=== PATIENT | male | born 1960 | race Caucasian/White ===

== ENCOUNTER 2021-10-10 19:15 | Inpatient (IN) | payer MEDICARE, OTHER ==
[~2021-10-10] VITALS: Ht 177.8 cm; Wt 116.9 kg
--- NOTE | 2021-10-10 11:15 | NUR ---
PT ARRIVED TO CCU ROOM 130 ADMITTED FOR SEPSIS, HAS RECENT OSWALD ON RIGHT FINGERS. IS ALERT AND ORIENTED, ABLE TO TRANSFER HIMSELF OVER TO THE BED. DENIES PAIN AT THIS TIME. IV VANCO INFUSING, WILL START IV ROCEPHIN NEXT ALONG WITH IVF. PLAN OF CARE DISCUSSED WITH THE PATIENT, HE AGREES, HAS NO CONCERNS OR QUESTONS AT THIS TIME.
[2021-10-10] MEDS ORDERED: COREG25 MG PO (20:26)
[2021-10-10] MEDS ORDERED: LIPITOR40 MG PO (20:26)
[2021-10-10] MEDS ORDERED: BUSPIRONE HCL15 MG PO (20:27)
[2021-10-10] MEDS ORDERED: AMITRIPTYLINE150 MG PO (20:27)
[2021-10-10] MEDS ORDERED: ZOLOFT50 MG PO (20:27)
[2021-10-10] MEDS ORDERED: METFORMIN HCL1000 MG PO (20:28)
[2021-10-10] MEDS ORDERED: KLOR-CON M2020 MEQ PO (20:28)
[2021-10-10] MEDS ORDERED: TORSEMIDE20 MG PO (20:29)
[2021-10-10] MEDS ORDERED: OXYCODONE HCL10 MG PO (20:29)
[2021-10-10] MEDS ORDERED: SINGULAIR10 MG PO (20:30)
[2021-10-10] MEDS ORDERED: VENTOLIN HFA18 GM INH ×2 (20:30)
[2021-10-10] MEDS ORDERED: HUMALOG100 UNITS/ SUB-Q (20:32)
[2021-10-10] MEDS ORDERED: LANTUS100 UNITS/ SUB-Q (20:32)
[2021-10-10] MEDS ORDERED: LYRICA300 MG PO (20:33)
[2021-10-10] MEDS ORDERED: OZEMPIC1 MG/0.71 SUB-Q (20:34)
--- OUTSIDE RECORDS SUMMARY | 2021-10-10 22:54 | XMS ---
PreManage Notification: GELA HERNADEZ Security Facility Coordinator Events No recent Security Events currently on file CRITERIA MET - PDMP CARE PROVIDERS Malena Clinton Market Development Manager/Cabin Cleaning Supervisor 02/03/2021-Current PHONE: [phone] [facility], Clinic/Center: [facility] PHONE: Unknown SHAY HAQ Physician Jewelry Dipper: [facility] PHONE: [phone] Vanna has no Care Guidelines for this patient. E.D. VISIT COUNT (12 MO.) 17 [facility] H. 1 [facility] TOTAL 18 NOTE: Visits indicate total known visits. ED/UCC VISIT TRACKING (12 MO.) 10/10/2021 19:16 [facility] [place] TYPE: Emergency COMPLAINT: - BURN 07/24/2021 05:41 [facility]. TYPE: Emergency COMPLAINT: - non traumatic left leg pain DIAGNOSES: - Leg Pain - non traumatic left leg pain - Radiculopathy, lumbar region 07/18/2021 19:43 [facility] TYPE: Emergency COMPLAINT: - Fall Hip Pain Unable to stand DIAGNOSES: - Hip Pain - Hip Pain Unable to stand - Lumbago with sciatica, left side - Fall Hip Pain Unable to stand 07/02/2021 13:04 [facility] TYPE: Emergency COMPLAINT: - Weakness DIAGNOSES: - Hyperglycemia, unspecified - Weakness - Pain, unspecified - Poisoning by unspecified narcotics, accidental (unintentional), initial encounter 06/30/2021 21:35 [facility] TYPE: Emergency COMPLAINT: - dizziness, from sleep lab DIAGNOSES: - Dizziness and giddiness - Dizziness 05/27/2021 00:15 [facility] TYPE: Emergency COMPLAINT: - fall DIAGNOSES: - Unspecified place in unspecified non-institutional (private) residence as the place of occurrence of the external cause - Unspecified fall, initial encounter - Unspecified injury of head, initial encounter - Fall - Laceration without foreign body of left lesser toe(s) without damage to nail, initial encounter - Fall on same level, unspecified, initial encounter 05/15/2021 15:17 [facility] TYPE: Emergency COMPLAINT: - Fatigue DIAGNOSES: - Blood Sugar Problem - Type 2 diabetes mellitus with other specified complication 05/14/2021 18:13 [facility] TYPE: Emergency COMPLAINT: - will not stay awake for longer than 10-15 minutes at time DIAGNOSES: - Hypotension - Other fatigue - will not stay awake for longer than 10-15 minutes at time 04/27/2021 20:44 [facility] TYPE: Emergency COMPLAINT: - uncontrolled pain after amputation this AM DIAGNOSES: - Pain Control - Post-op Problem - uncontrolled pain after amputation this AM - Other acute postprocedural pain 04/08/2021 14:14 [facility] TYPE: Emergency COMPLAINT: - Near Syncope DIAGNOSES: - Impacted cerumen, right ear - Near Syncope - Syncope and collapse - Dehydration 04/05/2021 16:38 [facility] TYPE: Emergency COMPLAINT: - Wound Check DIAGNOSES: - Gangrene, not elsewhere classified - Elevated C-reactive protein (CRP) - Elevated erythrocyte sedimentation rate - Chronic kidney disease, unspecified - Wound Check 04/01/2021 17:45 [facility] TYPE: Emergency COMPLAINT: - AMS DIAGNOSES: - Altered Mental Status - Pressure ulcer of sacral region, stage 1 - Personal history of COVID-19 - Transient alteration of awareness - AMS - Other specified personal risk factors, not elsewhere classified - Unspecified open wound of unspecified finger without damage to nail, initial encounter - Chronic kidney disease, stage 3a - Dehydration 03/27/2021 16:17 [facility] TYPE: Emergency COMPLAINT: - Cut off Top of Left Index finger DIAGNOSES: - Finger Injury - Personal history of other endocrine, nutritional and metabolic disease - Cut off Top of Left Index finger - Local infection of the skin and subcutaneous tissue, unspecified 03/23/2021 14:57 [facility] TYPE: Emergency COMPLAINT: - Rash DIAGNOSES: - Rash - Skin Ulcer - Pressure ulcer of sacral region, unspecified stage 03/10/2021 16:09 [facility] TYPE: Emergency COMPLAINT: - fever, cough, confusion DIAGNOSES: - Shortness of breath - Acute and chronic respiratory failure with hypercapnia - fever, cough, confusion - Shortness of Breath - Altered Mental Status - COVID-19 - Acute and chronic respiratory failure with hypoxia 03/05/2021 20:19 [facility] TYPE: Emergency COMPLAINT: - shivering cold, confused, hallucinations DIAGNOSES: - Disorientation, unspecified - shivering cold, confused, hallucinations - Altered Mental Status 01/08/2021 11:26 [facility] TYPE: Emergency COMPLAINT: - Wound, Foot \E\T\E\ Leg red swollen warm high risk per wound care DIAGNOSES: - Wound Check - Cellulitis of right lower limb - Encounter for other specified aftercare - Type 2 diabetes mellitus with hyperglycemia - Wound, Foot \E\T\E\ Leg red swollen warm - Wound, Foot \E\T\E\ Leg red swollen warm high risk per wound care 11/10/2020 22:09 [facility] TYPE: Emergency COMPLAINT: - Right leg lacerations/went thru floor board DIAGNOSES: - Right leg lacerations/went thru floor board - Fall INPATIENT VISIT TRACKING (12 MO.) 03/10/2021 20:11 [facility] TYPE: Medical Surgical COMPLAINT: - fever, cough, confusion DIAGNOSES: - Morbid (severe) obesity due to excess calories - Other chronic pain - COVID-19 - Hypoxemia - Encephalopathy, unspecified - Pneumonia, unspecified organism - Obstructive sleep apnea (adult) (pediatric) - Acute kidney failure, unspecified - Bacteremia - Shortness of breath - Acute and chronic respiratory failure with hypoxia - Type 2 diabetes mellitus with diabetic polyneuropathy - FCI (current) use of insulin - Sepsis, unspecified organism - Hypersomnia, unspecified - Chronic obstructive pulmonary disease with (acute) exacerbation - Hyperkalemia - Lumbago with sciatica, unspecified side - Severe sepsis without septic shock - Chronic respiratory failure with hypoxia - Heart failure, unspecified - Acute and chronic respiratory failure with hypercapnia 03/06/2021 00:41 [facility] TYPE: Medical Surgical COMPLAINT: - shivering cold, confused, hallucinations DIAGNOSES: - Sleep apnea, unspecified - Other specified abnormal findings of blood chemistry - Disorientation, unspecified - Acidosis - Other abnormalities of breathing - Acute and chronic respiratory failure with hypercapnia [email or web address]
--- NOTE | 2021-10-11 00:54 | NUR ---
PT ACCIDENTALLY PULLED OUT HIS IV WHILE USING THE URINAL, CLEANED UP AND IVF SWITCHED OVER TO OTHER IV SITE. PT USED URINAL AT BEDISIDE, NO ISSUES, WAS ABLE TO VOID 400 ML URINE.
--- NOTE | 2021-10-11 02:04 | NUR ---
NEW IV STARTED IN LEFT HAND BY PACKAGING TECH HIS OTHER IV KEPT ALARMING WHEN PT WOULD BEND HIS ARM. PT NOW LYING IN BED WITH EYES CLOSED, RESP EVEN AND UNLABORED.
--- NOTE | 2021-10-11 03:00 | NUR ---
IN TO CHECK ON PT HE IS SITTING UP AT EDGE OF BED, HAVING TROUBLE GETTING COMFORTABLE DUE TO LEFT SIDED RIB PAIN, OXYCODONE GIVEN, PT LIES BACK DOWN TO TRY TO SLEEP.
--- NOTE | 2021-10-11 03:16 | NUR ---
IN BECAUSE OF IV PUMP ALARMING, PT AWAKE IN BED STATES HE DOES NOT FEEL ANY EFFECT OF PAIN MEDICATION YET, STATES HE MAY NOT BE ABLE TO SLEEP TONIGHT.
--- NOTE | 2021-10-11 06:00 | NUR ---
PT RESTING IN BED WITH EYES CLOSED, APPEARS RELAXED, RESP KALIN AND UNLABORED HR 80'S.
--- NOTE | 2021-10-11 07:30 | NUR ---
REPORT RECIEVED, CARE OF PT ASSUMED AT THIS TIME.
--- NOTE | 2021-10-11 09:00 | NUR ---
ASSESSMENT AND MEDICATION ADMINSITRATION COMPLETED. PT ALERT ORIENTED x3. UNABLE TO REMEMBER CURRENT LOCATION. PT STATES HE IS FORGETFUL AT TIMES. PT DENIES PAIN. RIGHT INDEX FIGURE IS RED AND WARM TO TOUCH. PT HAS MULTIPLE OTHER ABRASIONS ON LEGS FROM RECENT FALL.IV VANCOMYCIN INFUSING. PLAN OF CARE FOR DAY ESTABLISHED. PT NOW EATING BREAKFAST, CALL LIGHT WITHIN REACH. WILL CONTINUE TO MONITOR.
--- NOTE | 2021-10-11 10:00 | NUR ---
PT INCONTINENT OF URINE. PERICARE PROVIDED. NEW ATTENDS IN PLACE. BED CHANGE COMPLETED. PT NOW SITTING UP IN CHAIR. IV VANCOMYCIN DONE INFUSING, IV FLUIDS CONTINUE TO INFUSE. CALL LIGHT WITHIN REACH. WILL CONTINUE TO MONITOR.
--- NOTE | 2021-10-11 10:36 | NUR ---
DR SMALLWOOD IN ROOM TO ASSESS PT. DISCUSSED PLAN OF CARE WITH PT. ALL QUESTIONS ANSWERED.
--- NOTE | 2021-10-11 11:30 | NUR ---
THIS TECHNICAL SOLUTION ARCHITECT IN PATIENTS ROOM FOR GLUCOSE CHECK. VITALS AND I&OS CHARTED. PATIENT USED URINAL BUT LARGE AMOUNT OF URINE WAS ON FLOOR WELL. LUNCH PROVIDED. RN NOTIFIED OF 100.1 TEMP.CALL LIGHT IN EASY REACH
--- NOTE | 2021-10-11 11:39 | NUR ---
ASSESSMENT COMPLETED. PT HAS LOW GRADE TEMPERATURE. HEART RATE 100 BPM AT REST. PT DENIES PAIN. REMAINS UP IN RECLINER. CALL LIGHT WITHIN REACH. WILL CONTINUE TO MONITOR.
--- NOTE | 2021-10-11 13:07 | NUR ---
REPORT GIVEN TO RN ON THE MEDICAL FLOOR. PT TRANSFRED TO MEDICAL FLOOR IN CHAIR. ALL BELONGINGS TRANSFERED WITH PT.
--- NOTE | 2021-10-11 13:12 | NUR ---
REPORT GIVEN TO RN ON THE MEDICAL FLOOR. PT TRANSFERED VIA CHAIR. ALL BELONGINGS TRANSFERED WITH PT.
--- NOTE | 2021-10-11 13:41 | NUR ---
PATIENT ARRIVED TO MED SURG VIA CHAIR. RIGHT INDEX FINGER IS NOTABLY SWOLLEN AND RED, WOUND AT TIP OF FINGER. PATIENT DENIES ANY PAIN, NO NAUSEA. IVF OF LR @ 100 IS INFUSING TO LEFT HAND.
--- NOTE | 2021-10-11 15:16 | NUR ---
PATIENT IS UP IN CHAIR, WATCHING TV, DENIES OTHER NEEDS.
--- NOTE | 2021-10-11 15:47 | NUR ---
PATIENT ORAL TEMP OF 101.2. PATIENT GIVEN PO TYLENOL, DENIES OTHER NEEDS.
--- NOTE | 2021-10-11 16:01 | NUR ---
CALL TO DR. DORSEY TO LET HIM KNOW THAT PATIENT HAS TEMP OF 101.2. BLOOD CULTURE ORDER IN, PER DR. DORSEY. LAB CALLED.
--- NOTE | 2021-10-11 17:48 | NUR ---
PATIENT'S TEMP IS IN THE NORMAL RANGE. 2 UNITS OF HUMALOG GIVEN FOR BG OF 193. PATIENT IS ELEVATING RIGHT HAND ON 2 PILLOWS.
--- NOTE | 2021-10-11 18:41 | NUR ---
PATIENT GIVEN 30 MEQ OF PO POTASSION, PATIENT REPORTS HE TAKES THIS A HOME MEDICATIONS. IVF RATE REDUCED TO LR @ 65. PATIENT IS VOIDING WELL, CONTINUING TO ELEVATE RIGHT HAND ON 2 PILLOWS.
--- NOTE | 2021-10-11 20:00 | NUR ---
PT REQUESTED AND RECEIVED 2 WARM BLANKETS, WELL ROOM TEMP WAS INCREASED. ROOM WAS COOL TO THIS RN.
--- NOTE | 2021-10-11 21:25 | NUR ---
PATIENT RESTING BACK IN BED, NOTED PATIENT SPILT URINAL ALL OVER FLOOR AND BRIEF SATURATED. PROVIDED CLEAN BRIEF AND CLEANED UP SPILL ON FLOOR. ADMINISTERED HS MEDICATIONS PER MAR, CBG 170- ADMINISTERED MEDICATIONS PER MAY. PATIENT APPEARS CALM, REPORTS NO PAIN 0/10 ON PAIN SCALE. FULL BODY ASSESMENT DONE, WNL. NO OTHER NEEDS AT THIS TIME. PATIENT IS INDEPENDANT IN ROOM.
--- NOTE | 2021-10-11 21:45 | NUR ---
WENT INTO THE ROOM. WIPED THE FLOOR WITH BOTELLO WIPES WET FROM URINE SPILLED FROM URINAL USE AND WIPED IT DRY. CHANGED BED LINEN AND GOWN. V/S AND I&O'S COMPLETED. PRIMARY RN NOTIFIED RE TEMP. WET WASH CLOTH PROVIDED. FRESH WATER REFILLED.
--- NOTE | 2021-10-11 22:02 | NUR ---
PATIENT FEBRILE 102.1, ADMINISTERED PO TYLENOL PER MAY. COOL WASHCLOTHS PROVIDED, BLANKETS REMOVED AND LIGHT SHEET PROVIDED.
--- NOTE | 2021-10-11 22:43 | NUR ---
PATIENT HAVING INCONTIENCE AND URINATING ON FLOOR WHILE TRYING TO USE THE URINAL. PROVIDED NEW BRIEF. CLEANED URINE OFF OF FLOOR.
--- NOTE | 2021-10-12 02:00 | NUR ---
PATIENT RESTING WITH EYES CLOSED. NO NEEDS AT THIS TIME. VOIDING WELL. USES CALL LIGHT APPROPRIATELY.
--- NOTE | 2021-10-12 06:45 | NUR ---
PATIENT FEBRILE TREATED WITH TYLENOL PO PER MAY. PATIENT STATED " I HAD RESTLESS LEGS THROUGHOUT THE NIGHT". DENIED ANY BACK PAIN. LUNG SOUNDS CLEAR. WOUND TO RIGHT FINGER OPEN TO AIR, NOTED ERYTHEMA AND EDEMA TO SITE. PATIENT APPEARS FORGETFUL, WHILE CONVERSING WILL SEARCH FOR CERTAIN WORDS. PATIENT INDEPENDANT IN ROOM, NEEDS HELP WITH URINALS. GOOD URINE OUTPUT.
--- NOTE | 2021-10-12 09:45 | NUR ---
PT SITTING IN BED WATCHING TV. DENIES PAIN. FINGER REMAINS REDDENED AND SCABBED OVER. REDRESSED IV IT WAS COMING UNDONE. ADMINISTERED MORNING MEDS.
[2021-10-12] MEDS ORDERED: MELATONIN3 MG PO (11:46)
[2021-10-12] MEDS ORDERED: LO-DOSE ASPIRIN81 MG PO (11:49)
[2021-10-12] MEDS ORDERED: STOOL SOFTENER100 MG PO (12:09)
[2021-10-12] MEDS ORDERED: SPIRIVA18 MCG INH (12:10)
[2021-10-12] MEDS ORDERED: NITROSTAT0.4 MG SL (12:11)
--- NOTE | 2021-10-12 13:19 | NUR ---
ASSISTED PT TO RESTROOM, TIPSY ON HIS FEET. PT HAD AN ACCIDENT ON FLOOR, CLEANED IT UP AND DUMPED HIS URINALS FOR 1000ML. ADMINISTERED INSULIN, STICKER HAD FALLEN OFF SO UNABLE TO SCAN.
--- NOTE | 2021-10-12 13:30 | NUR ---
MED REC COMPLETE
--- NOTE | 2021-10-12 15:00 | NUR ---
PT THRILLED TO BE SALINE LOCKED, PER ORDER.
--- NOTE | 2021-10-12 15:27 | NUR ---
Updated from Dr. Armendariz, when pt noo longer has a fever he will dc to his home town to follow up with his
--- NOTE | 2021-10-12 17:20 | NUR ---
SPOKE WITH PT REGARDING MEDICATIONS, HIS FAMILY AND GENERAL CHIT CHAT. PT READYTO GO HOME HE MISSES HIS THAT IS IN A CARE FACILITY. SPOKE WITH HER ON THE PHONE WHILE IN ROOM. ADMINISTERED MEDICATIONS PER ORDER. PT DENIES PAIN. FINGER APPEARS THE SAME THIS MORNING, REDDENED AND SWOLLEN, SCABBED AT THE END. DID VS AND I\O'S.
--- NOTE | 2021-10-12 21:05 | NUR ---
cbg 99, no iv, float rn in room starting iv
--- NOTE | 2021-10-12 22:02 | NUR ---
New iv started by float nurse earlier,L hand. abx infusing.L hand missing digits. scabbed jarret over L knee and R mid calf area, scabb areas over toes. L thumb and 1st finger edematous, red, peeling tip moist no odor. dressing applied adaptic and covered w gauze. coop. on isolation precautions. klungs clear. no sob. usees urinal. tolerating liquids well, no c/o pain
--- NOTE | 2021-10-12 23:22 | NUR ---
awake, iv abx beeping. corrected. pt tosses and turns in bed. noted taht dressing applied earlier to R finger was off, "It fell, I do not know where" will redress. pt coban over L Hand IV half off, it was not off about 10 mintues ago when this RN was in room and dressing R finger was on. Pt uses did not used urinal, voided in bucket, took attned off, attends soiled with urine. chux on floor. reoriented to keep chux in place, clean attends given instructed to use urinal. floor wiped. stated understanding, continues to observe, on resp isolation precautions
--- NOTE | 2021-10-13 00:27 | NUR ---
nurse walking by room, pt unsteady gait, walking to br, had removed chux from bed again and draw sheet off bed, R 1st finger had been redress afte he pulled dressing off and he had taken it off again. alert to slef, appears alert and oriented but not tracking instructions wel,, voided back to bed, R finger ulcer redress again with aquacell non adherent and covered with kerlix. had taken coban off L hand IV site completely off and IV tubing dressing was just hanging. redressed and coban dressing replaced, Pt instructed once more to please not take it off, stated "Oh Wood sorry I must have done it on my sleep" backa to bed. draw sheet back on bed, will leave chux off, was incontinent of urine in attedns too, changed again. fluids at bedside, continues on resp isolation precautions
--- NOTE | 2021-10-13 02:31 | NUR ---
On resp isolation precautions. no distress onr oom air, resting, eyes closed, no distress, call light at bedside.
--- NOTE | 2021-10-13 06:32 | NUR ---
pt up to br, voided plus was incontinent of clear urine. while sitting on toilet he scratched his legs and reopened both scabbeds over area, sanguineous scant amount of drainage noted, cleansed with soap and water and allevyn applied to both areas L uner knee area and R mid parks area. cooperative, used walker to get into br, slight unsteadiness noted, alert, oriented and coop this am, much different affect thatn last night. dressing R finger present. coban L hand sl site was off, replaced. pt looked at this Rn and stated "I know, you told me not to touch it". clean attends in place. tolerating liquids well
--- NOTE | 2021-10-13 09:00 | NUR ---
REPORT RECEIVED FROM NIGHT RN AND PT. CARE RESUMED. PT. IS ALERT AND ORIENTED TO ALL BUT DATE. HE IS ON ROOM AIR AND O2 SAT IS 95%. PT. DENIES PAIN. +3 EDEMA PRESENT IN LEFT 1ST DIGIT. FINGER WRAPPED IN ADAPTIC AND KERLEX TO PROTECT. PT. IS AMBULATING INDEPENDENTLY TO THE BATHROOM AND HAS A STEADY GAIT. ASSESSMENT COMPLETED. HE DENIES PAIN. LEFT RESTING WITH CALL LIGHT IN REACH.
--- NOTE | 2021-10-13 10:00 | NUR ---
ROUNDING ON PT. HE IS RESTING IN THE CHAIR. BROUGHT WATER. HE DENIES FURTHER NEEDS. LEFT RESTING IWTH CALL LIGHT IN REACH.
[2021-10-13] MEDS ORDERED: CEPHALEXIN500 MG PO (11:41)
[2021-10-13] MEDS ORDERED: DOXYCYCLINE HY100 MG PO (11:42)
[2021-10-13] MEDS ORDERED: COREG25 MG PO (11:42)
--- NOTE | 2021-10-13 13:15 | NUR ---
Spoke with pt. He states he is going home today. Still unable to remember the name of his pcp. His son has gone home to [place], but will return by 9 pm tonjose to pick pt up for discharge. Pt denies any needs.
--- NOTE | 2021-10-13 15:26 | NUR ---
ROUNDING ON PT. HE LYING ON HIS STOMACH AND DENIES NEEDS AT THIS TIME. CALL LIGHT IN REACH.
--- NOTE | 2021-10-13 23:12 | NUR ---
primary rn leslie completing discharge education and paperwrk with pt and pt's son. d/t [employer] tech issue, unable to document at time of disharge dicharge summary- see primary rn leslie's note regarding details of discharge.
--- NOTE | 2021-10-13 23:30 | NUR ---
PT'S SON,, GOMEZ ARRIVED WITH PT'S CLOTHES FOR DISCHARGE. HE WANTED TO BE PRESENT FOR ALL DC INSTRUCTIONS AND TO TAKE HIS FATHER HOME. PT RECEIVED ALL OF HIS ORDERED NIGHT MEDICATIONS INCLUDING HIS IV ANTIBIOTICS. PT WAS ASSISTED INTO A CLEAN BRIEF AFTER VOIDING AND THEN INTO HIS STREET CLOTHES. PT'S IV WAS DC'D , PT TOLERATED THIS WELL. WITH SON PRESENT PT'S DISCHARGE INSTRUCTIONS WERE COVERED AND ALL QUESTIONS ANSWERED. DISCHARGE INSTRUCTIONS INCLUDED ALL MEDICATIONS TAKEN, LAST DOSE, RESTART TIMES AND ANY CHANGES. HE WAS GIVEN PRESCIPTIONS FOR 2 ORAL ANTIBIOTICS TO FILL AND START TOMORROW.HE WAS GIVEN INFO SHEETS ON HIS ANTIBIOTICS. INFO ON HIS ADMIT DIAGNOSES WAS GIVEN. PT WAS PROVIDED WITH INFORMATION PERTINENT TO HIS ADMISSION FOR HIS PCP ALONG WITH INSTRUCTION TO CALL AND MAKE A FOLLOWUP APPT. ALL PT'S AND SON'S QUESTIONS WERE ANSWERED TO THEIR SATISFACTION. PT SIGNED DISCHARGE SHEET. PT WAS ASSISTED TO HIS SON'S VEHICLE BY STAFF AND SAFELY DISCHARGED HOME. ANSWERED. HE
== END 2021-10-13 23:12 | disposition home or self-care (01) | DRG 871 ==
LOC: ED 19:15 → MS 22:55 → CCU 22:55 → MS 10-11 13:15
PROVIDERS: ADMIT Internal Medicine; ATTEND Internal Medicine
PROC: 3E03329 Introduction of Other Anti-infective into Peripheral Vein, Percutaneous Approach (ICD-10-PCS; principal; 2021-10-10)
PROC: 8E0ZXY6 Isolation (ICD-10-PCS; 2021-10-10)
DX: A41.9 Sepsis, unspecified organism (principal); U07.1 COVID-19; N17.9 Acute kidney failure, unspecified; M86.9 Osteomyelitis, unspecified; L03.011 Cellulitis of right finger; R65.20 Severe sepsis without septic shock; R29.6 Repeated falls; I25.10 Atherosclerotic heart disease of native coronary artery without angina pectoris; F41.9 Anxiety disorder, unspecified; E66.9 Obesity, unspecified; G89.4 Chronic pain syndrome; T23.221A Burn of second degree of single right finger (nail) except thumb, initial encounter; E78.00 Pure hypercholesterolemia, unspecified; E11.65 Type 2 diabetes mellitus with hyperglycemia; I10 Essential (primary) hypertension; Z68.37 Body mass index [BMI] 37.0-37.9, adult; Z89.022 Acquired absence of left finger(s); Z88.2 Allergy status to sulfonamides; Z79.4 Long term (current) use of insulin; Z79.899 Other long term (current) drug therapy; X12.XXXA Contact with other hot fluids, initial encounter
CPT/HCPCS: 36415; 71045; 73140; 73590; 80048; 80053; 80202; 81001; 82570; 83036; 83605; 84300; 84550; 85025; 85610; 85730; 87040; 87502; A9270; C9803; J0696; J1650; J1815; J3370; J7030; J7060; J7121; U0003